=== PATIENT | male | born 2000 | race African-American/Black ===

== ENCOUNTER 2022-11-03 17:39 | Emergency (ER) | payer MEDICAID, OTHER, SELFPAY ==
[2022-11-03] MEDS ORDERED: Acetaminophen 500 MG TAB ONE (18:23)
[2022-11-03] MEDS ORDERED: Ondansetron ODT 4 MG TAB ONE (18:23)
[2022-11-03 18:38] LABS: #Monocytes 0.6 thou/uL (0.11-0.59); #Neutrophils 4.1 thou/uL (1.40-6.50); %Basophils 0.5 % (0.0-1.0); %Eosinophils 0.3 % (0.0-10.0); %Lymphocytes 23.8 % (28.0-48.0); %Monocytes 10.1 % (0.0-4.0); %Neutrophils 65.1 % (31.0-61.0); Hemoglobin 14.4 g/dL (14.0-18.0); Mean Corpuscular HGB CONC 33.7 g/dL (32.0-36.0); Mean Corpuscular Hemoglobin 27.8 pg (25.0-35.0); Mean Corpuscular Volume 82.4 fl (78.0-98.0); Mean Platelet Volume 10.3 fL (7.4-10.4); Platelet Count 183 10x3/uL (130-400); RBC Distribution Width 13.8 % (11.5-14.5); Red Blood Cell (RBC) Count 5.18 mill/uL (4.00-5.20); White Blood Cell (WBC) Count 6.3 10x3/uL (4.8-10.8)
[2022-11-03 19:03] LABS: ALT (SGPT) 19 U/L (8-55); AST (SGOT) 30 U/L (5-34); Albumin 4.3 g/dL (3.5-5.0); Alkaline Phosphatase 93 U/L (50-130); Anion Gap 14 mmol/L (10-20); BUN (Urea Nitrogen) 13 mg/dL (8.9-20.6); Bilirubin, Total 0.5 mg/dL (0.2-1.2); Calc. Creatinine Clearance 0 mL/min (70-130); Calcium 9.4 mg/dL (7.8-10.44); Carbon Dioxide 26 mmol/L (22-29); Chloride 105 mmol/L (98-107); Estimated GFR 84; Globulin 2.6 g/dL (2.4-3.5); Potassium 3.8 mmol/L (3.5-5.1); Protein, Total 6.9 g/dL (6.0-8.3); Sodium 141 mmol/L (136-145)
[2022-11-03 19:07] LABS: Glucose 46 mg/dL (70-105)
== END 2022-11-03 19:29 | disposition home or self-care (01) ==
LOC: ERS 17:39
DX: E16.2 Hypoglycemia, unspecified (principal); R42 Dizziness and giddiness; F17.290 Nicotine dependence, other tobacco product, uncomplicated
CPT/HCPCS: 36415; 36416; 80053; 85025; 93005; 94760; Q0162

== ENCOUNTER 2024-06-09 00:16 | Emergency (ER) | payer SELFPAY | END 2024-06-09 01:34 | disposition home or self-care (01) | LOC: ERS 00:16 | DX: L02.214 Cutaneous abscess of groin (principal); L03.314 Cellulitis of groin; F17.290 Nicotine dependence, other tobacco product, uncomplicated | CPT/HCPCS: 99282 ==